=== PATIENT | female | born 1955 | race Caucasian/White ===

== ENCOUNTER → 2017-06-27 | Outpatient (CLI) | payer OTHER ==
[~2017-06-27] MED LIST: ATENOLOL100 MG PO; ATENOLOL50 MG PO; ATORVASTATIN CA10 MG PO; COSOPT EYE DROPS5 ML LEFT EYE; COUMADIN7.5 MG PO; DAILY VALUE1 EACH PO; DAILY VITAMIN1 EAC4 PO; DESONIDE15 GM TP; DITROPAN XL10 MG PO; FLECTOR 1.3%1 PATC1 TD; FOLIC ACID0.4 MG PO; LATANOPROST2.5 ML BOTH EYES; LEVEMIR100 UNIT/2 SC; LOTREL 5/401 CAPSULE PO; LOVENOX100 MG/1 M SC; MECLIZINE HCL12.5 M1 PO; OXYBUTYNIN CHLO10 MG PO; REMICADE10 MG/ML IV; SERTRALINE HCL50 MG PO; SKELAXIN800 MG PO; VITAMIN C1000 MG PO; VITAMIN D2000 INTUN PO; VITAMIN D250000 UNIT PO; VOLTAREN 1% GE100 GM TP; XALATAN2.5 ML BOTH EYES; ZYRTEC10 M3 PO
== END | disposition home or self-care (01) ==
LOC: RAD 08:44
DX: K80.20 Calculus of gallbladder without cholecystitis without obstruction (principal); K82.8 Other specified diseases of gallbladder; K76.89 Other specified diseases of liver
CPT/HCPCS: 76770

== ENCOUNTER → 2017-10-13 | Outpatient (CLI) | payer OTHER ==
[~2017-10-13] MED LIST changes: +AUGMENTIN875 MG PO; +VENTOLIN HFA18 GM IH; +ZITHROMAX Z-PA250 MG PO
== END | disposition home or self-care (01) ==
LOC: RAD 08:20
DX: J06.9 Acute upper respiratory infection, unspecified (principal)
CPT/HCPCS: 71046

== ENCOUNTER 2017-10-16 15:45 | Emergency (ER) | payer OTHER ==
[~2017-10-16] VITALS: Ht 160 cm; Wt 93.9 kg
[~2017-10-16 15:45] MED LIST changes: -AUGMENTIN875 MG PO; -VENTOLIN HFA18 GM IH; -ZITHROMAX Z-PA250 MG PO
[2017-10-16 16:40] LABS: HEMATOCRIT 40.6 % (36.0-46.0); HEMOGLOBIN 13.1 G/DL (11.9-15.5); MCH 28.6 PG (29.0-34.0); MCHC 32.3 G/DL (30.0-36.0); MCV 88.6 FL (83-99); PLATELET COUNT 296 K/uL (156-360); RBC DIS.WIDTH-CV 14.5 % (11.8-14.6); RBC DIS.WIDTH-SD 47.2 % (39-53); RED BLOOD COUNT 4.58 M/uL (3.80-5.20); WHITE BLOOD COUNT 9.3 K/uL (4.1-10.2)
[2017-10-16 16:47] LABS: INTER. NORMALIZED RATIO 2.5
[2017-10-16 16:49] LABS: D-DIMER ELISA < 150.00 ng/mLDDU (<230); PTT 39.4 SEC (25-37)
[2017-10-16 16:51] LABS: ALBUMIN 3.7 g/dL (3.2-4.8); CHLORIDE 104 mEq/L (99-109); POTASSIUM 4.6 mEq/L (3.7-5.4); SODIUM 139 mEq/L (136-147)
[2017-10-16 16:53] LABS: GLUCOSE 99 mg/dL (70-99); TOTAL PROTEIN 7.9 g/dL (6.4-8.3)
[2017-10-16 16:55] LABS: TOTAL BILIRUBIN 0.4 mg/dL (0.0-1.0)
[2017-10-16 16:57] LABS: ALKALINE PHOSPHATASE 89 IU/L (3-129); CREATININE 0.7 mg/dL (0.6-1.3); GFR ESTIMATE (CALCULATED) > 59 mL/min/
[2017-10-16 16:58] LABS: UREA NITROGEN (BUN) 16 mg/dL (9-23)
[2017-10-16 16:59] LABS: AST (GOT) 26 IU/L (2-34)
[2017-10-16 17:00] LABS: ALT (GPT) 22 IU/L (3-49)
[2017-10-16 17:03] LABS: TROP-I INTERPRETATION NEGATIVE; TROPONIN-I < 0.01 ng/mL (0.0-0.30)
[2017-10-16] MEDS ORDERED: ZITHROMAX Z-PA250 MG PO (19:35)
[2017-10-16] MEDS ORDERED: VENTOLIN HFA18 GM IH (19:35)
[2017-10-16] MEDS ORDERED: AUGMENTIN875 MG PO (19:35)
[2017-10-16 19:56] VITALS: BP 129/75
== END 2017-10-16 19:57 | disposition home or self-care (01) ==
LOC: EME 15:45
PROVIDERS: Physician Assistant
DX: J18.9 Pneumonia, unspecified organism (principal); I10 Essential (primary) hypertension; E78.5 Hyperlipidemia, unspecified; M79.7 Fibromyalgia; E11.9 Type 2 diabetes mellitus without complications; Z88.2 Allergy status to sulfonamides; Z88.0 Allergy status to penicillin
CPT/HCPCS: 71250; 80053; 82948; 84484; 85027; 85379; 85610; 85730; 93005; 94640; 99281; 99285; J7512